=== PATIENT | male | born 2000 | race Caucasian/White ===

== ENCOUNTER 2025-11-10 18:05 | Emergency (ER) | payer SELFPAY ==
[~2025-11-10] VITALS: Ht 188 cm; Wt 63.5 kg
[2025-11-10] MEDS ORDERED: ACET-2030 PO (19:37)
[2025-11-10] MEDS ORDERED: ONDA4TAB5 PO (19:37)
[2025-11-10] MEDS ORDERED: IBUP-1955 PO (19:37)
[2025-11-10 19:49] VITALS: BP 122/86; TEMP 98.4; O2SAT 98
== END 2025-11-10 19:50 | disposition home or self-care (01) ==
LOC: ER 18:13
DX: S02.2XXA Fracture of nasal bones, initial encounter for closed fracture (principal); M25.531 Pain in right wrist; V29.99XA Rider (driver) (passenger) of other motorcycle injured in unspecified traffic accident, initial encounter; Y93.89 Activity, other specified; Y92.89 Other specified places as the place of occurrence of the external cause; Y99.8 Other external cause status
CPT/HCPCS: 70450-TC; 70486-TC; 73110